=== PATIENT | male | born 1955 | race Asian ===

== ENCOUNTER 2019-03-08 06:13 | Inpatient (IN) | payer OTHER ==
[~2019-03-08] VITALS: Ht 154.9 cm; Wt 62.7 kg
[2019-03-08 09:01] VITALS: BP 123/79; RESP 19
[2019-03-08 09:30] VITALS: Ht 154.9 cm; Wt 62.7 kg
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
[2019-03-08] MEDS ORDERED: NACL 0.9% 3 ML SYG IV SCH (10:00)
[2019-03-08] MEDS ORDERED: ACETAMINOPHEN 650 MG SUPP PR PRN (10:00)
[2019-03-08] MEDS ORDERED: ACETAMINOPHEN 325 MG TAB PO PRN (10:00)
[2019-03-08] MEDS ORDERED: ONDANSETRON 4 MG INJ IV PRN (10:00)
[2019-03-08] MEDS ORDERED: BISACODYL (EC) 5 MG TAB PO PRN (10:00)
[2019-03-08] MEDS ORDERED: DOCUSATE SODIUM 100 MG CAP PO PRN (10:00)
[2019-03-08] MEDS ORDERED: IODIXANOL LOCM 100 ML BTL ONE (10:48)
[2019-03-08] MEDS ORDERED: SOD CHLORIDE 0.9% 100 ML ONE ×2 (10:48→11:32)
[2019-03-08 11:13] VITALS: BP 114/77; PULSE 69; RESP 19
[2019-03-08] MEDS ORDERED: IOHEXOL 0 ML ONE (11:32)
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
--- NOTE | 2019-03-08 15:25 | RADRPT ---
Echocardiogram Report Patient Name: Darryl MARSHALL ID: [id number] : 1955 (63y 4m)Study Date: 03/08/2019 10:41:11 AM Gender: MAccession #: [id number] Tech: Jj Garibay [facility]ician: BILLY ZAYAS Height(Cm): BSA: Weight(Kg): Quality: AdequateOrder Physician: BILLY ZAYAS Account #: Procedures: Echocardiographic Report: Transthoracic echocardiogram with complete 2D, M-Mode, and doppler examination. Indications: Cerebrovascular Accident work up w/ Bubble Study. Measurements: 2D/M Mode Doppler Measurement Value Normal Range Measurement Value Normal Range LVIDd 2D 4.0 [ 4.2 - 5.8 ] cm AV Peak Bubba 1.5 [ 100.0 - 170.0 ] cm/sec LVIDs 2D 2.8 [ 2.5 - 4.0 ] cm AV Peak PG 9.0 [ 2.0 - 9.0 ] mmHg LVPWd 2D 1.1 [ 0.6 - 1.0 ] cm LVOT Peak Bubba 1.0 [ 70.0 - 110.0 ] cm/sec IVSd 2D 1.2 [ 0.6 - 1.0 ] cm LVOT Peak PG 4.0 [ 2.0 - 6.0 ] mmHg AoR Diam 2D 2.8 [ 2.6 - 3.4 ] cm MV E Peak Bubba 0.7 [ 60.0 - 130.0 ] cm/sec EDV 2D 71.3 [ 62.0 - 150.0 ] ml MV A Peak Bubba 1.0 [ 100.0 - 120.0 ] cm/sec ESV 2D 28.3 [ 21.0 - 61.0 ] ml MV E/A 0.7 [ 0.8 - 1.5 ] ratio EF 2D 60.3 [ 52.0 - 72.0 ] percent MV Decel Time 225 [ 104 - 258 ] msec LA Dimen 2D 3.4 [ 3.0 - 4.0 ] cm Lat E` Bubba 0.1 [ 10.0 - 15.0 ] cm/sec Lateral E/E` 6.4 [ 1.0 - 2.0 ] ratio Med E` Bubba 0.1 cm/sec MV E/A 0.7 [ 0.8 - 1.5 ] ratio TR Peak Bubba 2.0 [ 100.0 - 280.0 ] cm/sec TR Peak PG 16.0 mmHg RVSP 26.0 [ 10.0 - 36.0 ] mmHg Findings: Left Ventricle: Normal left ventricular systolic function. Normal left ventricular cavity size. Left ventricular wall thickness upper limits of normal. Ejection fraction is visually estimated at 65 %. Tissue Doppler/Mitral Doppler indices are consistent with impaired relaxation (Stage I diastolic dysfunction). Right Ventricle: Normal right ventricular size. Normal right ventricular systolic function. Left Atrium: The left atrium is normal in size. Right Atrium: The right atrium is normal in size. Atrial Septum: Bubble study was performed with and with out valsalva indicating no evidence of intra atrial shunt. Mitral Valve: Mild mitral leaflet calcification. Mild mitral annular calcification. Trace mitral regurgitation. Aortic Valve: No hemodynamically significant aortic stenosis by doppler. Aortic cusps appear mildly calcified. Trace aortic valve regurgitation. Tricuspid Valve: Normal appearance of the tricuspid valve. The estimated Peak RVSP is 26 mmHg. There is trace tricuspid regurgitation. Pericardium: Normal pericardium with no significant pericardial effusion. Aorta: Normal aortic root. IVC: Normal size and normal respiratory collapse consistent with normal right atrial pressure. Conclusions: Mild mitral leaflet calcification. Mild mitral annular calcification. Trace mitral regurgitation. No hemodynamically significant aortic stenosis by doppler. Aortic cusps appear mildly calcified. Trace aortic valve regurgitation. Normal appearance of the tricuspid valve. The estimated Peak RVSP is 26 mmHg. There is trace tricuspid regurgitation. Bubble study was performed with and with out valsalva indicating no evidence of intra atrial shunt. Normal left ventricular systolic function. Normal left ventricular cavity size. Left ventricular wall thickness upper limits of normal. Ejection fraction is visually estimated at 65 %. Tissue Doppler/Mitral Doppler indices are consistent with impaired relaxation (Stage I diastolic dysfunction). Electronically Signed By: Francis Pino 2019-03-08 15:24:03 PDT
[2019-03-08 15:59] VITALS: PULSE 63; RESP 19
[2019-03-08 19:54] VITALS: BP 110/71; PULSE 68; RESP 18
[2019-03-08] MEDS: ATORVASTATIN 80 MG TAB PO SCH (21:00)
[2019-03-08] MEDS ORDERED: POTASSIUM CHLORIDE 100 ML IVPB ONE (22:00)
[2019-03-08] MEDS: DEXTROSE 5%-0.45% NACL 1,000 ML IV SCH (22:12)
[2019-03-09] VITALS (7 sets, daily range): BP systolic 109–118; BP diastolic 62–75; PULSE 58–69; RESP 17–18
[2019-03-09] MEDS: ASPIRIN 81 MG TAB PO SCH (09:00)
[2019-03-09] MEDS: ENOXAPARIN 40 MG/0.4 ML SYG SC SCH (10:23)
--- NOTE | 2019-03-09 11:33 | PN ---
Date/Time of Note Date/Time of Note DATE: 03/09/19 TIME: 11:30 Assessment/Plan VTE Prophylaxis Risk score (from Ns)>0 risk: 6 SCD applied (from Ns): Yes Pharmacological prophylaxis: LMWH Lines/Catheters IV C[facility]from [facility] Saline Lock Assessment/Plan Hospital Course SUBJECTIVE: Patient remains asleep, does not open eyes. OBJECTIVE: Vital signs-see below PHYSICAL EXAM: Constitutional: Altered/nonverbal HEENT: Head atraumatic and normocephalic. Eyes: Remains closed,unable to do pupil exam NECK: Supple without lymph node. CHEST: Clear and good breath sounds equally. No wheezing. No rhonchi. HEART: S1, S2. Regular rate and rhythm. ABDOMEN: Soft/non tender with no rebound tenderness. Bowel sounds were present. EXTREMITIES: No cyanosis, clubbing or edema. NEUROLOGIC: Altered/disorientex3.Alert to self. Speech:nonverbal,nods head. LLE/RLE w/drift. BLE weak. PSYCHOSOCIAL: No signs of depression. INTEGUMENTARY: No open wounds. ASSESSMENT AND PLAN:63 yo M w/HTN/DLP managed w/diet transferred form OSH where pt was brought in family w/sudden onset of unresponsiveness,tremors,rolling eyes after had an argument w.his family.. Acute Encephalopathy -Rule out CVA/ acute neurovascular events versus possible seizure activities versus others. -Brain CT from OSH unrevealing -Pending MRI.... -Tox screen negative -f/u neuro recs -PT/OT/ST -ASA/Statin not given w/current AMS and failed ST -Neurochecks/seizure precautions-f/u eeg studies ?Skull lesion,incidental finding -CTA shows slightly expansible likely right parietal calvarial lesion, concerning for neoplastic/metastatic process -Oncology consult requested-f/u MRI.. HTN -Managed with diet/exercise. Currently BP stable and no indication for antihypertensives. Dyslipidemia -statin when stable for po DVT prophylaxis: Lovenox PUD prophylaxis: Not indicated dispo: Patient still remains altered/disoriented. Failed speech eval. Continue rehabilitation and follow-up neurology recommendations. Patient was seen in collaboration with Result Diagram: 03/09/19 0501 03/09/19 0501 Results 24hrs Laboratory Tests Test 03/08/19 15:39 03/08/19 19:55 03/09/19 05:01 Creatine Kinase 91 Creatine Kinase Index 0.6 Creatinine Kinase MB (Mass) 0.58 Troponin I < 0.012 Urine Opiates Screen Negative Urine Barbiturates Negative Urine Amphetamines Screen Negative Urine Benzodiazepines Screen Negative Urine Cocaine Screen Negative Urine Cannabinoids Negative White Blood Count 4.2 L Red Blood Count 4.84 Hemoglobin 14.4 Hematocrit 42.8 Mean Corpuscular Volume 88.4 Mean Corpuscular Hemoglobin 29.8 Mean Corpuscular Hemoglobin Concent 33.6 Red Cell Distribution Width 12.1 Platelet Count 245 Mean Platelet Volume 9.3 Immature Granulocytes % 0.200 Neutrophils % 63.5 Lymphocytes % 24.5 Monocytes % 10.2 Eosinophils % 1.4 Basophils % 0.2 Nucleated Red Blood Cells % 0.0 Immature Granulocytes # 0.010 Neutrophils # 2.7 Lymphocytes # 1.0 Monocytes # 0.4 Eosinophils # 0.1 Basophils # 0.0 Nucleated Red Blood Cells # 0.0 Sodium Level 140 Potassium Level 3.5 Chloride Level 110 Carbon Dioxide Level 24 Anion Gap 6 Blood Urea Nitrogen 7 Creatinine 0.80 Est Glomerular Filtrat Rate mL/min > 60 Glucose Level 93 Calcium Level 8.5 Magnesium Level 2.2 Exam/Review of Systems Exam Vitals Vital Signs Date Temp Pulse Resp B/P (MAP) Pulse Ox O2 O2 Flow FiO2 Time Delivery Rate 03/09/19 97.9 66 18 97 Room Air 07:52 Intake and Output 03/08/19 03/08/19 03/09/19 1515:00 23:00 07:00 OutputOutput Total 400 ml 400 ml BalanceBalance -400 ml -400 ml Results Results 24hrs Laboratory Tests Test 03/08/19 15:39 03/08/19 19:55 03/09/19 05:01 Creatine Kinase 91 Creatine Kinase Index 0.6 Creatinine Kinase MB (Mass) 0.58 Troponin I < 0.012 Urine Opiates Screen Negative Urine Barbiturates Negative Urine Amphetamines Screen Negative Urine Benzodiazepines Screen Negative Urine Cocaine Screen Negative Urine Cannabinoids Negative White Blood Count 4.2 L Red Blood Count 4.84 Hemoglobin 14.4 Hematocrit 42.8 Mean Corpuscular Volume 88.4 Mean Corpuscular Hemoglobin 29.8 Mean Corpuscular Hemoglobin Concent 33.6 Red Cell Distribution Width 12.1 Platelet Count 245 Mean Platelet Volume 9.3 Immature Granulocytes % 0.200 Neutrophils % 63.5 Lymphocytes % 24.5 Monocytes % 10.2 Eosinophils % 1.4 Basophils % 0.2 Nucleated Red Blood Cells % 0.0 Immature Granulocytes # 0.010 Neutrophils # 2.7 Lymphocytes # 1.0 Monocytes # 0.4 Eosinophils # 0.1 Basophils # 0.0 Nucleated Red Blood Cells # 0.0 Sodium Level 140 Potassium Level 3.5 Chloride Level 110 Carbon Dioxide Level 24 Anion Gap 6 Blood Urea Nitrogen 7 Creatinine 0.80 Est Glomerular Filtrat Rate mL/min > 60 Glucose Level 93 Calcium Level 8.5 Magnesium Level 2.2 Medications Medication Current Medications IV Flush (NS 3 ml) 3 ml PER PROTOCOL IV ; Start 03/08/19 at 10:00 Ondansetron HCl (Zofran Inj) 4 mg Q6H PRN IV NAUSEA/VOMITING; Start 03/08/19 at 10:00 Acetaminophen (Tylenol Tab) 650 mg Q6H PRN PO .PAIN 1-3 OR TEMP; Start 03/08/19 at 10:00 Acetaminophen (Tylenol Supp) 650 mg Q6H PRN [place] .PAIN 1-3 OR TEMP; Start 03/08/19 at 10:00 Docusate Sodium (Colace) 100 mg Q12H PRN PO .CONSTIPATION; Start 03/08/19 at 10:00 Bisacodyl (Dulcolax) 5 mg DAILY PRN PO .CONSTIPATION; Start 03/08/19 at 10:00 Enoxaparin Sodium (Lovenox) 40 mg DAILY SC Last administered on 03/09/19at 10:23; Admin Dose 40 MG; Start 03/09/19 at 09:00 Aspirin (Aspirin) 81 mg DAILY PO ; Start 03/09/19 at 09:00 Atorvastatin Calcium (Lipitor) 80 mg HS PO ; Start 03/08/19 at 21:00 Dextrose/Sodium Chloride 1,000 ml @ 75 mls/hr [id number] IV Last administered on 03/08/19at 22:12; Admin Dose 75 MLS/HR; Start 03/08/19 at 22:00 BILLY ZAYAS NP Mar 09, 2019 11:33
--- NOTE | 2019-03-09 12:03 | CONS ---
Assessment/Plan Assessment/Plan Assessment/Plan (Recall) 63 M c/ multiple comorbidities, who presents for evaluation of ams following an emotional outburst. The clinical picture is most ominously concerning for an acute cerebrovascular process.. Psychogenic spell is a Dx of exclusion.. Head CT/CTA are unrevealing...though incidentally notable for a skull lesion c/f met MRI is cancelled by performing department 2/2 Hx of shoulder screw.. P: Agree w/ asa/liptior daily for secondary prevention for now EEG to evaluate for epileptiform activity PT/OT/ST as necessary Other management and supportive care per primary Will follow clinically Consultation Date/Type/Reason Admit Date/Time Mar 08, 2019 at 08:50 Type of Consult Neurology Reason for Consultation ams Requesting Provider: BILLY ZAYAS NP Date/Time of Note DATE: 03/09/19 TIME: 12:03 24 HR Interval Summary Free Text/Dictation Continues acute care Exam/Review of Systems Exam Vitals Vital Signs Date Temp Pulse Resp B/P (MAP) Pulse Ox O2 O2 Flow FiO2 Time Delivery Rate 03/09/19 98.3 65 18 96 Room Air 11:22 03/09/19 07:52 Intake and Output 03/08/19 03/08/19 03/09/19 1515:00 23:00 07:00 OutputOutput Total 400 ml 400 ml BalanceBalance -400 ml -400 ml Results Result Diagram: 03/09/19 0501 03/09/19 0501 Results 24hrs Laboratory Tests Test 03/08/19 15:39 03/08/19 19:55 03/09/19 05:01 Creatine Kinase 91 Creatine Kinase Index 0.6 Creatinine Kinase MB (Mass) 0.58 Troponin I < 0.012 Urine Opiates Screen Negative Urine Barbiturates Negative Urine Amphetamines Screen Negative Urine Benzodiazepines Screen Negative Urine Cocaine Screen Negative Urine Cannabinoids Negative White Blood Count 4.2 L Red Blood Count 4.84 Hemoglobin 14.4 Hematocrit 42.8 Mean Corpuscular Volume 88.4 Mean Corpuscular Hemoglobin 29.8 Mean Corpuscular Hemoglobin Concent 33.6 Red Cell Distribution Width 12.1 Platelet Count 245 Mean Platelet Volume 9.3 Immature Granulocytes % 0.200 Neutrophils % 63.5 Lymphocytes % 24.5 Monocytes % 10.2 Eosinophils % 1.4 Basophils % 0.2 Nucleated Red Blood Cells % 0.0 Immature Granulocytes # 0.010 Neutrophils # 2.7 Lymphocytes # 1.0 Monocytes # 0.4 Eosinophils # 0.1 Basophils # 0.0 Nucleated Red Blood Cells # 0.0 Sodium Level 140 Potassium Level 3.5 Chloride Level 110 Carbon Dioxide Level 24 Anion Gap 6 Blood Urea Nitrogen 7 Creatinine 0.80 Est Glomerular Filtrat Rate mL/min > 60 Glucose Level 93 Calcium Level 8.5 Magnesium Level 2.2 Medications Medication Current Medications IV Flush (NS 3 ml) 3 ml PER PROTOCOL IV ; Start 03/08/19 at 10:00 Ondansetron HCl (Zofran Inj) 4 mg Q6H PRN IV NAUSEA/VOMITING; Start 03/08/19 at 10:00 Acetaminophen (Tylenol Tab) 650 mg Q6H PRN PO .PAIN 1-3 OR TEMP; Start 03/08/19 at 10:00 Acetaminophen (Tylenol Supp) 650 mg Q6H PRN [place] .PAIN 1-3 OR TEMP; Start 03/08/19 at 10:00 Docusate Sodium (Colace) 100 mg Q12H PRN PO .CONSTIPATION; Start 03/08/19 at 10:00 Bisacodyl (Dulcolax) 5 mg DAILY PRN PO .CONSTIPATION; Start 03/08/19 at 10:00 Enoxaparin Sodium (Lovenox) 40 mg DAILY SC Last administered on 03/09/19at 10:23; Admin Dose 40 MG; Start 03/09/19 at 09:00 Aspirin (Aspirin) 81 mg DAILY PO ; Start 03/09/19 at 09:00 Atorvastatin Calcium (Lipitor) 80 mg HS PO ; Start 03/08/19 at 21:00 Dextrose/Sodium Chloride 1,000 ml @ 75 mls/hr [id number] IV Last administered on 03/08/19at 22:12; Admin Dose 75 MLS/HR; Start 03/08/19 at 22:00 RUBÉN MOSER Mar 09, 2019 12:03
[2019-03-09] MEDS: DEXTROSE 5%-0.45% NACL 1,000 ML IV SCH (12:51)
[2019-03-09] MEDS ORDERED: SOD CHLORIDE 0.9% 500 ML IV ONE (14:00)
--- NOTE | 2019-03-09 16:24 | RADRPT ---
Vent Rate: 71 bpm RR Interval: 848 msec RI Interval: 174 msec QRS Duration: 99 msec QT Interval: 400 msec QTC Interval: 434 msec P-R-T [place]: 35 - 33 - 57 degrees Sinus rhythm...normal P axis, V-rate 50- 99 Electronically Signed By: Jesus Gonzalez
[2019-03-09] MEDS: ATORVASTATIN 80 MG TAB PO SCH (21:00)
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
[2019-03-10] VITALS: BP 105/65; PULSE 65; RESP 18
[2019-03-10] MEDS: DEXTROSE 5%-0.45% NACL 1,000 ML IV SCH (00:40)
[2019-03-10 04:00] VITALS: BP 116/77; PULSE 66; RESP 18
--- NOTE | 2019-03-10 06:18 | EEG ---
EEG NOTE Report Details DATE OF TEST: 03/09/19 HISTORY: The patient is a 63-year-old M who presents with altered mental status. This EEG is requested to evaluate for seizures. SEDATION: None. CONDITIONS OF RECORDING: This EEG was recorded digitally on the linked[employer] machine, using the International 10-20 System of electrodes plus anterior temporals and Nz. STATES SAMPLED: Wakefulness and drowsiness. FINDINGS: During wakefulness, there is a 8.5-9 Hz posterior dominant rhythm. There is a normal etzbochy-hd-ojbipqfol frequency-amplitude gradient. The remainder of the awake background is notable for admixed theta and delta activity. Photic stimulation does not elicit any definite driving responses or epileptiform discharges. Hyperventilation was not performed. No asymmetries, focal abnormalities or epileptiform discharges were seen. IMPRESSION: Abnormal electroencephalogram due to: diffuse slowing. COMMENT: The slowing of the background indicates diffuse cortical dysfunction of nonspecific etiology. RUBÉN MOSER Mar 10, 2019 06:18
[2019-03-10] MEDS: ASPIRIN 81 MG TAB PO SCH (10:37)
[2019-03-10] MEDS: ENOXAPARIN 40 MG/0.4 ML SYG SC SCH (10:45)
--- NOTE | 2019-03-10 11:24 | PN ---
Date/Time of Note Date/Time of Note DATE: 03/10/19 TIME: 11:20 Assessment/Plan VTE Prophylaxis Risk score (from Ns)>0 risk: 6 SCD applied (from Ns): Yes Pharmacological prophylaxis: LMWH Lines/Catheters IV [facility] Saline Lock Assessment/Plan Hospital Course SUBJECTIVE: Patient is alert oriented x4 today. He is following commands. OBJECTIVE: Vital signs-see below PHYSICAL EXAM: Constitutional: Adequately built, not in acute distress. HEENT: Head atraumatic and normocephalic. Eyes: Remains closed,unable to do pupil exam NECK: Supple without lymph node. CHEST: Clear and good breath sounds equally. No wheezing. No rhonchi. HEART: S1, S2. Regular rate and rhythm. ABDOMEN: Soft/non tender with no rebound tenderness. Bowel sounds were present. EXTREMITIES: No cyanosis, clubbing or edema. NEUROLOGIC: Alert oriented x4, clear speech. Answers questions appropriately. Motor strength 5 out of 5 on all 4 extremities. PSYCHOSOCIAL: No signs of depression. INTEGUMENTARY: No open wounds. ASSESSMENT AND PLAN:63 yo M w/HTN/DLP managed w/diet transferred form OSH where pt was brought in family w/sudden onset of unresponsiveness,tremors,rolling eyes after had an argument w.his family.. Acute Encephalopathy, unknown etiology. -CT/MRI negative for stroke. Toxicology negative. Mentation back to normal. ? psychological spells followed by emotional outburst -Brain CT from OSH unrevealing -f/u neurology recommendations. EEG has been ordered. ?Skull lesion,incidental finding -Appreciate oncology recommendation. Follow-up metastatic bone series study HTN -Managed with diet/exercise. Currently BP stable and no indication for antihypertensives. Dyslipidemia -Continue statin DVT prophylaxis: Lovenox PUD prophylaxis: Not indicated dispo: Patient is now back to his normal. He is alert and oriented. He does not have any focal deficit. Follow-up bone scan studies. Follow-up neurology recommendations. Patient was seen in collaboration with Result Diagram: 03/09/19 0501 03/09/19 0501 Results 24hrs Laboratory Tests Test 03/09/19 14:54 03/09/19 19:33 03/10/19 06:02 Lactate Dehydrogenase 378 Urine Color YELLOW Urine Clarity CLEAR Urine pH 6.0 Urine Specific [place] 1.012 Urine Ketones 1+ H Urine Nitrite NEGATIVE Urine Bilirubin NEGATIVE Urine Urobilinogen 1+ H Urine Leukocyte Esterase NEGATIVE Urine Hemoglobin NEGATIVE Urine Glucose NEGATIVE Urine Total Protein NEGATIVE Carcinoembryonic Antigen 1.5 Immunoglobulin A 207 Immunoglobulin G 940 Immunoglobulin M 40 Exam/Review of Systems Exam Vitals Vital Signs Date Temp Pulse Resp B/P (MAP) Pulse Ox O2 O2 Flow FiO2 Time Delivery Rate 03/10/19 98.2 66 18 116/77 94 04:00 (90) 03/09/19 Room Air 16:05 Intake and Output 03/09/19 03/09/19 03/10/19 1515:00 23:00 07:00 IntakeIntake Total 150 ml OutputOutput Total 100 ml 500 ml BalanceBalance -100 ml -350 ml Results Results 24hrs Laboratory Tests Test 03/09/19 14:54 03/09/19 19:33 03/10/19 06:02 Lactate Dehydrogenase 378 Urine Color YELLOW Urine Clarity CLEAR Urine pH 6.0 Urine Specific [place] 1.012 Urine Ketones 1+ H Urine Nitrite NEGATIVE Urine Bilirubin NEGATIVE Urine Urobilinogen 1+ H Urine Leukocyte Esterase NEGATIVE Urine Hemoglobin NEGATIVE Urine Glucose NEGATIVE Urine Total Protein NEGATIVE Carcinoembryonic Antigen 1.5 Immunoglobulin A 207 Immunoglobulin G 940 Immunoglobulin M 40 Medications Medication Current Medications IV Flush (NS 3 ml) 3 ml PER PROTOCOL IV ; Start 03/08/19 at 10:00 Ondansetron HCl (Zofran Inj) 4 mg Q6H PRN IV NAUSEA/VOMITING; Start 03/08/19 at 10:00 Acetaminophen (Tylenol Tab) 650 mg Q6H PRN PO .PAIN 1-3 OR TEMP; Start 03/08/19 at 10:00 Acetaminophen (Tylenol Supp) 650 mg Q6H PRN NC .PAIN 1-3 OR TEMP; Start 03/08/19 at 10:00 Docusate Sodium (Colace) 100 mg Q12H PRN PO .CONSTIPATION; Start 03/08/19 at 10:00 Bisacodyl (Dulcolax) 5 mg DAILY PRN PO .CONSTIPATION; Start 03/08/19 at 10:00 Enoxaparin Sodium (Lovenox) 40 mg DAILY SC Last administered on 03/10/19at 10:45; Admin Dose 40 MG; Start 03/09/19 at 09:00 Aspirin (Aspirin) 81 mg DAILY PO Last administered on 03/10/19at 10:37; Admin Dose 81 MG; Start 03/09/19 at 09:00 Atorvastatin Calcium (Lipitor) 80 mg HS PO ; Start 03/08/19 at 21:00 Dextrose/Sodium Chloride 1,000 ml @ 75 mls/hr [id number] IV Last administered on 03/09/19at 12:51; Admin Dose 75 MLS/HR; Start 03/08/19 at 22:00 BILLY ZAYAS NP Mar 10, 2019 11:24
[2019-03-10 12:00] VITALS: BP 103/70; PULSE 86; RESP 20
--- NOTE | 2019-03-10 12:28 | CONS ---
Assessment/Plan Assessment/Plan Assessment/Plan (Recall) 63 M c/ multiple comorbidities, who presents for evaluation of ams following an emotional outburst. The clinical picture was initially concerning for an acute cerebrovascular process..However, MRI brain is without evidence of acute intracranial pathology. A psychogenic spell is possible.. Head CTA is unrevealing...though incidentally notable for a skull lesion c/f met EEG is without epileptiform activity. P: PT/OT/ST as necessary Continued medical management and supportive care per primary Will sign off for now; please call w/ ?s Consultation Date/Type/Reason Admit Date/Time Mar 08, 2019 at 08:50 Type of Consult Neurology Reason for Consultation ams Requesting Provider: BILLY ZAYAS NP Date/Time of Note DATE: 03/10/19 TIME: 12:26 24 HR Interval Summary Free Text/Dictation s/p MRI brain Exam/Review of Systems Exam Vitals Vital Signs Date Temp Pulse Resp B/P (MAP) Pulse Ox O2 O2 Flow FiO2 Time Delivery Rate 03/10/19 98.2 86 20 103/70 97 Room Air 12:00 (81) Intake and Output 03/09/19 03/09/19 03/10/19 1515:00 23:00 07:00 IntakeIntake Total 150 ml OutputOutput Total 100 ml 500 ml BalanceBalance -100 ml -350 ml Exam PE: Gen Appearance: No Apparent Distress HEENT: Normocephalic Cardiovascular: Regular rate Abdomen: Soft Extremities: Dry NE: The patient was alert and oriented. Language was normal. Fund of knowledge was normal. Pupils were equal and reactive to light. There was no afferent pupillary defect. Visual juárez were normal. Funduscopic examination was limited. Extra-ocular movements were full. Ptosis was absent. There was no nystagmus. Facial sensation was normal. Face was symmetric with normal strength. Hearing was intact. Palate movements were normal. Neck strength was normal. There was normal tongue bulk and speed of movement. Tone was normal. Muscle bulk was normal. I did not see fasciculations. Arms and legs were symmetric. Vibration sensation was normal. Temperature and pinprick sensation was normal. Rapid alternating movements were normal. There was no dysmetria. There was no intention tremor. Gait was deferred due to bedrest. Arm and leg reflexes were symmetric. Steele's sign was absent. Plantar responses were flexor. Results Result Diagram: 03/09/19 0501 03/09/19 0501 Results 24hrs Laboratory Tests Test 03/09/19 14:54 03/09/19 19:33 03/10/19 06:02 Lactate Dehydrogenase 378 Urine Color YELLOW Urine Clarity CLEAR Urine pH 6.0 Urine Specific [place] 1.012 Urine Ketones 1+ H Urine Nitrite NEGATIVE Urine Bilirubin NEGATIVE Urine Urobilinogen 1+ H Urine Leukocyte Esterase NEGATIVE Urine Hemoglobin NEGATIVE Urine Glucose NEGATIVE Urine Total Protein NEGATIVE Carcinoembryonic Antigen 1.5 Immunoglobulin A 207 Immunoglobulin G 940 Immunoglobulin M 40 Medications Medication Current Medications IV Flush (NS 3 ml) 3 ml PER PROTOCOL IV ; Start 03/08/19 at 10:00 Ondansetron HCl (Zofran Inj) 4 mg Q6H PRN IV NAUSEA/VOMITING; Start 03/08/19 at 10:00 Acetaminophen (Tylenol Tab) 650 mg Q6H PRN PO .PAIN 1-3 OR TEMP; Start 03/08/19 at 10:00 Acetaminophen (Tylenol Supp) 650 mg Q6H PRN [place] .PAIN 1-3 OR TEMP; Start 03/08/19 at 10:00 Docusate Sodium (Colace) 100 mg Q12H PRN PO .CONSTIPATION; Start 03/08/19 at 10:00 Bisacodyl (Dulcolax) 5 mg DAILY PRN PO .CONSTIPATION; Start 03/08/19 at 10:00 Enoxaparin Sodium (Lovenox) 40 mg DAILY SC Last administered on 03/10/19at 10:45; Admin Dose 40 MG; Start 03/09/19 at 09:00 Aspirin (Aspirin) 81 mg DAILY PO Last administered on 03/10/19at 10:37; Admin Dose 81 MG; Start 03/09/19 at 09:00 Atorvastatin Calcium (Lipitor) 80 mg HS PO ; Start 03/08/19 at 21:00 RUBÉN MOSER Mar 10, 2019 12:28
--- NOTE | 2019-03-10 13:30 | PN ---
DATE: 03/10/2019 SUBJECTIVE: Patient states he is feeling better. He is conversant today. Denies headaches, chest p ain or shortness of breath. Does state that he is "a little dizzy." OBJECTIVE: GENERAL: The patient is a well-developed, well-nourished male in no acute distress. VITAL SIGNS: Temperature 98.2 orally, pulse 86 per minute and regular, respirations 20, blood pressu re 103/70, pulse oximetry 97% on room air. SKIN: No ecchymosis, no petechiae or rashes. HEENT: Normocephalic. No evidence of trauma. Pupils equal, round, reactive to light and accommodat ion. Sclerae nonicteric. There is no abnormality on palpation of the scalp. NECK: Supple. No jugular venous distention or thyroid enlargement. CHEST: Clear to auscultation and percussion. No rhonchi, wheezes, rales or rubs. NODES: No palpable adenopathy. HEART: Regular sinus rhythm, no S3, S4 or murmurs. ABDOMEN: Soft, no masses, no ascites. EXTREMITIES: Good range of motion. No clubbing, no edema or cyanosis. No palpable cords or Homans sign. NEUROLOGIC: Normal. There are no focal neurologic abnormalities, although the patient is slightly w eak, but this is symmetrical. He is alert and oriented. The patient has had an MRI of the brain. This shows no intracranial findings or evidence of acute in farct. There are changes in the right parietal bone without bone marrow edema and seen to be filled with CSF. 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 A metastatic skeletal survey shows the mildly expansive lucent lesion within the posterior parietal c alvarium. There are no other bony abnormalities noted. CEA is 1.5, IgG 190, IgA 207, IgM 40. ASSESSMENT: 1. Altered mental status, resolving. 2. Possible calvarial lesion, likely related to the "intraosseous arachnoid cyst" noted on MRI. At this time, there is no evidence of malignancy. Dictated By: JAZMÍN FRANK MD SR/NTS Conf#: [id number] DID#: [id number] CC: KELSIE PAZ MD;*EndCC*
[2019-03-10 15:42] VITALS: BP 137/79; PULSE 64; RESP 20
[2019-03-10 20:23] VITALS: BP 112/69; PULSE 70; RESP 20
[2019-03-10] MEDS: ATORVASTATIN 80 MG TAB PO SCH (20:40)
[2019-03-11 00:52] VITALS: BP 133/79; PULSE 71; RESP 20
[2019-03-11 04:50] VITALS: BP 121/69; PULSE 58; RESP 20
[2019-03-11 07:48] VITALS: BP 109/75; PULSE 67; RESP 18
--- NOTE | 2019-03-11 09:17 | PDOCDIS ---
Discharge Instructions CONDITION [id number] Patient Condition: [id number] Stable HOME CARE INSTRUCTIONS: [id number] Diet Instructions: [id number] Low Fat /Cholesterol FOLLOW UP/APPOINTMENTS Follow-up Plan 1.YOU HAVE RECEIVED A MEDICAL TREATMENT AT [facility] AND YOUR CONDITION IS STABLE AND CAN BE FOLLOWED UP OUTPATIENT. FURTHER FOLLOW-UPS CAN WAIT UNTIL YOU ARE SEEN IN YOUR DOCTORS OFFICE WITHIN THE NEXT 1-2 DAYS. IT IS YOUR RESPONSIBILITY TO MAKE AN APPOINTMENT FOR FOLOW-UP CARE. IF YOU HAVE A PRIMARY DOCTOR --you should call your primary doctor in 1-2 days and schedule an appointment IF YOU DO NOT HAVE A PRIMARY DOCTOR YOU CAN CALL OUR PHYSICIAN REFERRAL HOTLINE AT IF YOU CAN NOT AFFORD TO SEE A PHYSICIAN YOU CAN CHOSE FROM THE FOLLOWING ON LICENSE OF [facility] [address] [facility] [address] [facility] [facility] [address] [facility] [address] [facility] [address] [facility]. [facility]. [address]. Call 911 or go to the nearest emergency room if experiencing loss of consciousness, dizziness, chest pain, shortness of breath, vomiting/abdominal pain, speech difficulties, motor weakness or any unusual symptoms. BILLY ZAYAS NP Mar 11, 2019 09:17
[2019-03-11] MEDS: ASPIRIN 81 MG TAB PO SCH (10:06)
[2019-03-11] MEDS: ENOXAPARIN 40 MG/0.4 ML SYG SC SCH (10:09)
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
--- NOTE | 2019-03-11 11:08 | CONS ---
Assessment/Plan Assessment/Plan Assessment/Plan (Recall) 63 M c/ multiple comorbidities, who presents for evaluation of ams following an emotional outburst. The clinical picture was initially concerning for an acute cerebrovascular process..However, MRI brain is without evidence of acute intracranial pathology. A psychogenic spell is possible.. Head CTA is unrevealing...though incidentally notable for a skull lesion of uncertain significance EEG is without epileptiform activity. P: PT/OT/ST as necessary Continued medical management and supportive care per primary Will sign off for now; please call w/ ?s Consultation Date/Type/Reason Admit Date/Time Mar 08, 2019 at 08:50 Type of Consult Neurology Reason for Consultation ams Requesting Provider: BILLY ZAYAS NP Date/Time of Note DATE: 03/11/19 TIME: 11:07 24 HR Interval Summary Free Text/Dictation Continues acute care Exam/Review of Systems Exam Vitals Vital Signs Date Temp Pulse Resp B/P (MAP) Pulse Ox O2 O2 Flow FiO2 Time Delivery Rate 03/11/19 97.4 67 18 109/75 98 Room Air 07:48 (86) Intake and Output 03/10/19 03/10/19 03/11/19 1515:00 23:00 07:00 IntakeIntake Total 360 ml 600 ml OutputOutput Total 750 ml BalanceBalance 360 ml -150 ml Results Result Diagram: 03/09/19 0501 03/09/19 0501 Medications Medication Current Medications IV Flush (NS 3 ml) 3 ml PER PROTOCOL IV ; Start 03/08/19 at 10:00 Ondansetron HCl (Zofran Inj) 4 mg Q6H PRN IV NAUSEA/VOMITING; Start 03/08/19 at 10:00 Acetaminophen (Tylenol Tab) 650 mg Q6H PRN PO .PAIN 1-3 OR TEMP; Start 03/08/19 at 10:00 Acetaminophen (Tylenol Supp) 650 mg Q6H PRN NV .PAIN 1-3 OR TEMP; Start 03/08/19 at 10:00 Docusate Sodium (Colace) 100 mg Q12H PRN PO .CONSTIPATION; Start 03/08/19 at 10:00 Bisacodyl (Dulcolax) 5 mg DAILY PRN PO .CONSTIPATION; Start 03/08/19 at 10:00 Enoxaparin Sodium (Lovenox) 40 mg DAILY SC Last administered on 03/11/19at 10:09; Admin Dose 40 MG; Start 03/09/19 at 09:00 Aspirin (Aspirin) 81 mg DAILY PO Last administered on 03/11/19at 10:06; Admin Dose 81 MG; Start 03/09/19 at 09:00 Atorvastatin Calcium (Lipitor) 80 mg HS PO ; Start 03/08/19 at 21:00 RUBÉN MOSER Mar 11, 2019 11:08
[2019-03-11 11:47] VITALS: BP 143/82; PULSE 69; RESP 18
== END 2019-03-11 13:00 | disposition home or self-care (01) | DRG 72 ==
LOC: 6WM 08:50
PROVIDERS: ADMIT Family Medicine; ATTEND Family Medicine
DX: G93.40 Encephalopathy, unspecified (principal); I10 Essential (primary) hypertension; E78.5 Hyperlipidemia, unspecified; M85.68 Other cyst of bone, other site
CPT/HCPCS: 70496; 70498; 70551; 73020; 77075; 78306; 80048; 80053; 80061; 80307; 81003; 82378; 82550; 82553; 82784; 83036; 83615; 83735; 84155; 84165; 84443; 84484; 85025; 86320; 86788; 86789; 87086; 92526; 92610; 93005; 93306; 95819; 97110; 97116; 97163; 97165; 97530; 97535; A9503; J1650; J3480; J7040; J7042; Q9967